=== PATIENT | female | born 1995 | race Caucasian/White ===

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

== ENCOUNTER 2017-03-29 19:41 | Emergency (ER) | payer OTHER ==
[2017-03-29 20:48] VITALS: BP 105/57
== END 2017-03-29 20:48 | disposition home or self-care (01) ==
LOC: ED 19:41
DX: K52.9 Noninfective gastroenteritis and colitis, unspecified (principal); J32.9 Chronic sinusitis, unspecified; J45.909 Unspecified asthma, uncomplicated; N39.0 Urinary tract infection, site not specified; K21.9 Gastro-esophageal reflux disease without esophagitis
CPT/HCPCS: Q0162

== ENCOUNTER 2018-05-10 13:55 | Emergency (ER) | payer OTHER ==
[~2018-05-10] VITALS: Ht 162.6 cm; Wt 63.5 kg
[2018-05-10 14:01] VITALS: BP 104/60; Ht 162.6 cm; Wt 63.5 kg
== END 2018-05-10 14:57 | disposition home or self-care (01) ==
LOC: ED 13:55
DX: J06.9 Acute upper respiratory infection, unspecified (principal); H10.9 Unspecified conjunctivitis; J45.909 Unspecified asthma, uncomplicated; K21.9 Gastro-esophageal reflux disease without esophagitis

== ENCOUNTER 2018-08-04 20:04 | Emergency (ER) | payer OTHER ==
[~2018-08-04] VITALS: Ht 162.6 cm; Wt 62.6 kg
[2018-08-04 20:13] VITALS: Ht 162.6 cm; Wt 62.6 kg
[2018-08-04 21:03] VITALS: BP 108/56
== END 2018-08-04 21:03 | disposition home or self-care (01) ==
LOC: ED 20:04
DX: N39.0 Urinary tract infection, site not specified (principal); J45.909 Unspecified asthma, uncomplicated; K21.9 Gastro-esophageal reflux disease without esophagitis

== ENCOUNTER 2018-11-08 20:37 | Emergency (ER) | payer OTHER | END 2018-11-08 21:50 | disposition left against medical advice (07) | LOC: ED 20:37 | DX: Z53.21 Procedure and treatment not carried out due to patient leaving prior to being seen by health care provider (principal) ==

== ENCOUNTER 2019-05-25 02:16 | Emergency (ER) | payer OTHER ==
[~2019-05-25] VITALS: Ht 162.6 cm; Wt 65.9 kg
[2019-05-25 02:29] VITALS: BP 110/48
== END 2019-05-25 05:52 | disposition left against medical advice (07) ==
LOC: ED 02:16
DX: Z53.21 Procedure and treatment not carried out due to patient leaving prior to being seen by health care provider (principal)